=== PATIENT | male | born 1990 | race Caucasian/White ===

== ENCOUNTER 2018-10-08 17:46 | Emergency (ER) | payer OTHER ==
[2018-10-08 18:53] LABS: APPEARANCE,URINE Clear (CLEAR); BILIRUBIN,URINE Negative (NEGATIVE); COLOR,URINE Yellow (YELLOW); GLUCOSE, URINE (UA) >=1000 mg/dL (NEGATIVE); KETONES,URINE Trace mg/dL (NEGATIVE); LEUKOCYTE ESTERASE ,URINE Negative (NEGATIVE); NITRATE,URINE Negative (NEGATIVE); OCCULT BLOOD,URINE Negative (NEGATIVE); PH,URINE 5.5 (5.0-8.0); PROTEIN,URINE Negative (NEGATIVE)
[2018-10-08 18:58] LABS: BASOPHILS % (AUTO) 0.9 % (0.0-5.0); EOSINOPHILS % (AUTO) 1.1 % (0.0-8.0); HEMATOCRIT 45.2 % (42-54); LYMPHOCYTES % (AUTO) 48.4 % (21.0-51.0); MEAN CORPUSCULAR HEMOGLOBIN 31.3 pg (27.0-33.0); MEAN CORPUSCULAR VOLUME 89.4 fL (79-99); MONOCYTES % (AUTO) 17.8 % (3.0-13.0); NEUTROPHILS % (AUTO) 31.8 % (40.0-77.0); NUCLEATED RED BLOOD CELLS 0.3 % (0.0-0.19); PLATELET COUNT (AUTO) 253 K/uL (130-400); RED BLOOD CELL COUNT(AUTO) 5.05 MIL/uL (4.50-6.20); RED CELL DISTRIBUTION WIDTH 13.1 % (11.0-15.5); WHITE BLOOD COUNT (AUTO) 5.9 K/uL (4.8-10.8)
[2018-10-08 19:02] LABS: AMPHET/METH SCREEN,URINE NEGATIVE (NEGATIVE); BARBITURATE SCREEN, URINE NEGATIVE (NEGATIVE); BENZODIAZEPINES SCREEN,URINE NEGATIVE (NEGATIVE); CANNABINOID SCREEN,URINE POSITIVE (NEGATIVE); COCAINE SCREEN,URINE NEGATIVE (NEGATIVE); OPIATE SCREEN,URINE NEGATIVE (NEGATIVE); PHENCYCLIDINE SCREEN,URINE NEGATIVE (NEGATIVE)
[2018-10-08 19:19] LABS: ALCOHOL, BLOOD < 3 mg/dL (0-10); SALICYLATE 3.8 mg/dL (2.8-20.0)
[2018-10-08 19:21] LABS: ACETAMINOPHEN < 1 mcg/mL (10-29)
[2018-10-08 19:21] LABS: BACTERIA,URINE Rare /HPF (None Seen); RBC,URINE None Seen /HPF (0-1); SQUAMOUS EPITHELIAL CELL,UR None Seen /HPF (0-2); WBC,URINE 0-1 /HPF (0-1)
[2018-10-08 19:35] LABS: BAND NEUTROPHILS % (MANUAL) 7 % (0-2); EOSINOPHILS % (MANUAL) 1 % (1-6); LYMPHOCYTES % (MANUAL) 32 % (22-44); MAN.DIFF COMMENT-IMPRESSION MANUAL DIFFERENTIAL; MONOCYTES % (MANUAL) 11 % (2-9); PLATELET MORPHOLOGY COMMENT ADEQUATE; REACTIVE LYMPHOCYTES 7 % (0-0); SEGMENTED NEUTROPHILS % 42 % (40-70)
[2018-10-08] MEDS ORDERED: LORAZEPAM 2 MG/ML 1 ML VIAL ONE (19:54)
[2018-10-08] MEDS ORDERED: INSULIN HUMULIN R 100 UNIT/ML 3ML ONE (21:37)
[2018-10-08 21:54] LABS: ALBUMIN 3.9 g/dL (3.5-5.0); BILIRUBIN,TOTAL 0.6 mg/dL (0.2-1.0); CREATININE 1.2 mg/dL (0.5-1.5); POTASSIUM 4.1 mmol/L (3.5-5.1); TOTAL PROTEIN, SERUM 8.2 g/dL (6.0-8.3)
== END 2018-10-09 00:02 | disposition short-term general hospital (02) ==
LOC: EDH 17:46
DX: R45.851 Suicidal ideations (principal); R10.9 Unspecified abdominal pain; E11.9 Type 2 diabetes mellitus without complications; F43.10 Post-traumatic stress disorder, unspecified; F32.9 Major depressive disorder, single episode, unspecified; Z79.4 Long term (current) use of insulin; Z72.0 Tobacco use
CPT/HCPCS: 36415; 80053; 80305; 81001; 82948 ×4; 85025; 96372 ×2; 99285; G0480 ×2; G0481; J1815; J2060

== ENCOUNTER 2021-05-17 22:03 | Emergency (ER) | payer SELFPAY ==
[~2021-05-17] VITALS: Ht 180.3 cm; Wt 79.8 kg
[2021-05-17] MEDS ORDERED: DICYCLOMINE 20MG (10MG/ML) AMP IM ONE (22:30)
[2021-05-17] MEDS ORDERED: MAG/ALUM/SIMETH 30 ML UDCUP PO ONE (22:30)
[2021-05-17] MEDS ORDERED: FAMOTIDINE 20MG TAB PO ONE (22:30)
[2021-05-17 22:31] LABS: BASOPHILS % (AUTO) 0.4 % (0.0-5.0); EOSINOPHILS % (AUTO) 0.7 % (0.0-8.0); HEMATOCRIT 44.2 % (42-54); LYMPHOCYTES % (AUTO) 24.9 % (21.0-51.0); MEAN CORPUSCULAR HEMOGLOBIN 30.3 pg (27.0-33.0); MEAN CORPUSCULAR HGB CONC 34.6 g/dL (32.0-36.0); MEAN CORPUSCULAR VOLUME 87.5 fL (79-99); NEUTROPHILS % (AUTO) 62.7 % (40.0-77.0); PLATELET COUNT (AUTO) 236 K/uL (130-400); RED BLOOD CELL COUNT(AUTO) 5.05 MIL/uL (4.50-6.20); RED CELL DISTRIBUTION WIDTH 12.1 % (11.0-15.5); WHITE BLOOD COUNT (AUTO) 7.4 K/uL (4.8-10.8)
[2021-05-17 22:32] LABS: APPEARANCE,URINE Clear (CLEAR); BILIRUBIN,URINE Negative (NEGATIVE); COLOR,URINE Yellow (YELLOW); GLUCOSE, URINE (UA) 250 mg/dL (NEGATIVE); KETONES,URINE 15 mg/dL (NEGATIVE); LEUKOCYTE ESTERASE ,URINE Negative (NEGATIVE); NITRATE,URINE Negative (NEGATIVE); OCCULT BLOOD,URINE Negative (NEGATIVE); PROTEIN,URINE Negative (NEGATIVE)
[2021-05-17 22:39] LABS: CREATININE 0.9 mg/dL (0.5-1.5); POTASSIUM 3.4 mmol/L (3.5-5.1)
[2021-05-17 22:44] LABS: ALBUMIN 4.2 g/dL (3.5-5.0); BILIRUBIN,TOTAL 0.5 mg/dL (0.2-1.0); TOTAL PROTEIN, SERUM 8.3 g/dL (6.0-8.3)
[2021-05-17 22:45] LABS: BACTERIA,URINE Rare /HPF (None Seen); RBC,URINE None Seen /HPF (0-1); SQUAMOUS EPITHELIAL CELL,UR None Seen /HPF (0-2)
[2021-05-17] MEDS ORDERED: POTASSIUM BICARB/CIT AC 25 MEQ TABLET.EFF PO ONE (23:00)
[2021-05-17] MEDS ORDERED: CEFTRIAXONE 1G VIAL IM ONE (23:00)
[2021-05-17] MEDS ORDERED: FAMO-136 PO (23:02)
[2021-05-17] MEDS ORDERED: DICY20TA2 PO (23:02)
[2021-05-17] MEDS ORDERED: CEPH500B PO (23:02)
[2021-05-17 23:51] VITALS: BP 112/69
[2021-05-19] MEDS ORDERED: ONDA4TAB4 PO (20:31)
[2021-05-19] MEDS ORDERED: SUCR1TAB28 PO (20:31)
== END 2021-05-18 00:03 | disposition home or self-care (01) ==
LOC: EDH 22:03
DX: K29.70 Gastritis, unspecified, without bleeding (principal); E87.6 Hypokalemia; E10.65 Type 1 diabetes mellitus with hyperglycemia
CPT/HCPCS: 36415; 80053; 81001; 82948; 83690; 85025; 96372 ×2; 99284; J0500; J0696

== ENCOUNTER 2021-05-19 16:05 | Emergency (ER) | payer SELFPAY ==
[~2021-05-19] VITALS: Ht 180.3 cm; Wt 79.4 kg
[~2021-05-19 16:05] MED LIST: CEPH500B PO; DICY20TA2 PO; FAMO-136 PO
[2021-05-19 16:40] LABS: BASOPHILS % (AUTO) 0.4 % (0.0-5.0); EOSINOPHILS % (AUTO) 0.2 % (0.0-8.0); LYMPHOCYTES % (AUTO) 25.9 % (21.0-51.0); MEAN CORPUSCULAR HEMOGLOBIN 30.7 pg (27.0-33.0); MEAN CORPUSCULAR HGB CONC 34.9 g/dL (32.0-36.0); MEAN CORPUSCULAR VOLUME 87.9 fL (79-99); MONOCYTES % (AUTO) 9.6 % (3.0-13.0); NEUTROPHILS % (AUTO) 63.5 % (40.0-77.0); PLATELET COUNT (AUTO) 235 K/uL (130-400); RED BLOOD CELL COUNT(AUTO) 4.89 MIL/uL (4.50-6.20); RED CELL DISTRIBUTION WIDTH 12.2 % (11.0-15.5); WHITE BLOOD COUNT (AUTO) 8.1 K/uL (4.8-10.8)
[2021-05-19 17:06] LABS: CARBON DIOXIDE 26 mmol/L (21-32); CHLORIDE 100 mmol/L (101-111); CREATININE 0.8 mg/dL (0.5-1.5); GLOMERULAR FILTR. RATE CALC 120 mL/min (>60); GLUCOSE,RANDOM 213 mg/dL (70-105); POTASSIUM 3.5 mmol/L (3.5-5.1); SODIUM SERUM 139 mmol/L (136-145); UREA NITROGEN, BLOOD 4 mg/dL (7-18)
[2021-05-19 17:10] LABS: ALANINE AMINOTRANSFERASE 30 U/L (12-78); ALBUMIN 4.2 g/dL (3.5-5.0); AMYLASE 30 U/L (25-115); ASPARTATE AMINOTRANSFERASE 22 U/L (10-37); BILIRUBIN,TOTAL 0.6 mg/dL (0.2-1.0); TOTAL PROTEIN, SERUM 8.2 g/dL (6.0-8.3)
[2021-05-19 17:22] LABS: LIPASE < 50 U/L (114-286)
[2021-05-19 17:56] VITALS: BP 132/98
[2021-05-19] MEDS ORDERED: ONDANSETRON 4MG INJ ONE (18:19)
[2021-05-19] MEDS ORDERED: KETOROLAC 30MG VIAL (30MG/ML) ONE (18:19)
[2021-05-19] MEDS ORDERED: 0.9%NACL 1000ML 1,000 ML IV SCH ×2 (19:10→19:30)
[2021-05-19] MEDS ORDERED: ONDA4TAB4 PO (20:31)
[2021-05-19] MEDS ORDERED: SUCR1TAB28 PO (20:31)
== END 2021-05-19 21:20 | disposition home or self-care (01) ==
LOC: EDH 16:05
DX: K29.70 Gastritis, unspecified, without bleeding (principal); E11.9 Type 2 diabetes mellitus without complications
CPT/HCPCS: 36415; 76700; 80053; 82150; 83690; 85025; 96374; 96375; 99284; J1885; J2405

== ENCOUNTER 2021-05-23 21:52 | Emergency (ER) | payer OTHER, SELFPAY ==
[~2021-05-23] VITALS: Ht 180.3 cm; Wt 77.6 kg
[~2021-05-23 21:52] MED LIST changes: +ONDA4TAB4 PO; +SUCR1TAB28 PO
[2021-05-23 22:15] VITALS: BP 113/80
[2021-05-23] MEDS ORDERED: SCOP1PAT11 TD (23:56)
[2021-05-24] MEDS ORDERED: SCOPOLAMINE HYDROBROMIDE 1 EACH ADH..PATCH TD ONE
[2021-05-24] MEDS ORDERED: SCOPOLAMINE HYDROBROMIDE 1 EACH ADH..PATCH TD SCH
[2021-05-24 00:03] VITALS: BP 106/78
== END 2021-05-24 00:11 | disposition home or self-care (01) ==
LOC: EDH 21:52
DX: B34.9 Viral infection, unspecified (principal); R11.2 Nausea with vomiting, unspecified; Z20.822 Contact with and (suspected) exposure to COVID-19; E10.9 Type 1 diabetes mellitus without complications; Z79.899 Other long term (current) drug therapy; Z87.891 Personal history of nicotine dependence
CPT/HCPCS: 87635; 99283; C9803

== ENCOUNTER 2021-05-27 07:58 | Emergency (ER) | payer SELFPAY ==
[~2021-05-27] VITALS: Ht 180.3 cm; Wt 75.3 kg
[~2021-05-27 07:58] MED LIST changes: +SCOP1PAT11 TD
[2021-05-27 08:46] VITALS: BP 122/80
[2021-05-27 08:50] LABS: APPEARANCE,URINE Clear (CLEAR); BILIRUBIN,URINE Negative (NEGATIVE); COLOR,URINE Yellow (YELLOW); GLUCOSE, URINE (UA) 500 mg/dL (NEGATIVE); KETONES,URINE 15 mg/dL (NEGATIVE); LEUKOCYTE ESTERASE ,URINE Negative (NEGATIVE); NITRATE,URINE Negative (NEGATIVE); OCCULT BLOOD,URINE Negative (NEGATIVE); PH,URINE 5.5 (5.0-8.0); PROTEIN,URINE Negative (NEGATIVE); UROBILINOGEN,URINE 0.2 mg/dL (0.2-1.0)
[2021-05-27 08:59] LABS: BACTERIA,URINE Rare /HPF (None Seen); MUCUS,URINE Rare LPF (None Seen); RBC,URINE None Seen /HPF (0-1); SQUAMOUS EPITHELIAL CELL,UR Few /HPF (0-2); WBC,URINE 0-1 /HPF (0-1)
[2021-05-27 09:43] LABS: BASOPHILS % (AUTO) 0.5 % (0.0-5.0); EOSINOPHILS % (AUTO) 0.7 % (0.0-8.0); HEMATOCRIT 44.2 % (42-54); LYMPHOCYTES % (AUTO) 22.8 % (21.0-51.0); MEAN CORPUSCULAR HEMOGLOBIN 30.6 pg (27.0-33.0); MEAN CORPUSCULAR HGB CONC 35.1 g/dL (32.0-36.0); MEAN CORPUSCULAR VOLUME 87.4 fL (79-99); MONOCYTES % (AUTO) 11.1 % (3.0-13.0); NEUTROPHILS % (AUTO) 64.4 % (40.0-77.0); PLATELET COUNT (AUTO) 218 K/uL (130-400); RED BLOOD CELL COUNT(AUTO) 5.06 MIL/uL (4.50-6.20); RED CELL DISTRIBUTION WIDTH 12.1 % (11.0-15.5); WHITE BLOOD COUNT (AUTO) 8.1 K/uL (4.8-10.8)
[2021-05-27 09:58] LABS: CREATININE 0.9 mg/dL (0.5-1.5)
[2021-05-27 10:01] LABS: ALBUMIN 4.4 g/dL (3.5-5.0); BILIRUBIN,TOTAL 0.7 mg/dL (0.2-1.0); TOTAL PROTEIN, SERUM 8.5 g/dL (6.0-8.3)
[2021-05-27] MEDS ORDERED: TAMS-1 PO (11:52)
[2021-05-27] MEDS ORDERED: ONDA4TAB4 PO (11:52)
[2021-05-27 12:08] VITALS: BP 119/79
[2021-05-29 14:10] LABS: CHLAMYDIA DNA N.A.AMPLIFY Negative (Negative)
== END 2021-05-27 12:16 | disposition home or self-care (01) ==
LOC: EDH 07:58
DX: K29.70 Gastritis, unspecified, without bleeding (principal); R33.9 Retention of urine, unspecified; L60.0 Ingrowing nail; E11.9 Type 2 diabetes mellitus without complications; Z79.4 Long term (current) use of insulin; Z79.899 Other long term (current) drug therapy
CPT/HCPCS: 36415; 76770; 80053; 81001; 83690; 85025; 87486; 87797